=== PATIENT | female | born 2000 | race Caucasian/White ===

== ENCOUNTER 2024-07-26 01:27 | Emergency (ER) | payer OTHER, SELFPAY ==
[2024-07-26 01:29] VITALS: BP 124/88
[2024-07-26 01:47] VITALS: BP 112/72
--- NOTE | 2024-07-26 02:02 | ED.GENMED ---
History of Present Illness
General
Chief Complaint: Chest Pain
Source: patient and family
Exam Limitations: none
Time Seen by Provider: 07/26/24 02:01
Nursing documentation reviewed up to this point in time: agreed with
History of Present Illness
History of Present Illness:
Pleasant 24-year-old female presents to the emergency department with substernal chest pain that began around 10 PM this evening. Patient is a student at [employer] but lives up in [place]. On Wednesday she was seen at [facility] for an
abscess on her right upper arm. She was treated with Bactrim. She states that the abscess is now resolved and she has 2 days left of the Bactrim. She feels that this chest pain might have had something to do with the new medication. Denies
fever, chills, current chest pain, current shortness of breath. She states that the chest pain came on suddenly and has now resolved. Reports no fever. No complaints at this time.
Review of Systems
Review of Systems
Allergies reviewed?: Yes
All Other Systems: ROS reviewed and negative except as documented in HPI and ROS
Constitutional: Reports no symptoms
EENT: Reports no symptoms
Respiratory: Reports no symptoms
Cardiac: Reports chest pain
ABD/GI: Reports no symptoms
: Reports no symptoms
Musculoskeletal: Reports no symptoms
Skin: Reports no symptoms
Neurological: Reports no symptoms
Endocrine: Reports no symptoms
Hematologic/Lymphatic: Reports no symptoms
Psychiatric: Reports no symptoms
Phy Exam
General Physical Exam
General Presentation: well appearing and no apparent distress
General Skin: warm and dry
General Habitus: normal
General Mental: alert
General Hydration: appears well hydrated
ENT Exam
ENT Exam: EOMI, pharynx normal, neck supple and normocephalic
Eye Exam
Eye Exam: PERRL, cornea clear and conjunctiva normal
Cardiovascular Exam
Cardiovascular Exam: regular rate/rhythm, no edema, no murmur and normal peripheral pulses
Pulmonary Exam
Pulmonary Exam: lungs clear, no respiratory distress, no rales, no crackles, no rhonchi, no stridor, no wheezing and no cough
Gastrointestinal Exam
Gastrointestinal Exam: normal bowel sounds, non tender, soft, no organomegaly, no pulsatile mass and non distended
Neurological Exam
Neurological Exam: alert, oriented x3, no motor deficits and speech normal
Musculoskeletal Exam
Musculoskeletal Exam: full ROM and no edema
Skin Exam
Skin Exam: normal color, warm/dry, no rash and no petechia
Psychiatric Exam
Psychiatric Exam: normal mood/affect
Scores
Heart Score for Chest Pain Patients
STEMI patient?: No
History: Slightly or Non-Suspicious
ECG: Normal
Age: </= 45 years
Risk Factors: No Risk Factors
Troponin: </= Normal Limit
Heart Score for Chest Pain Patients: 0
Heart Score Risk: 2.5% MACE over next 6 weeks
Course
Orders/Labs/Results
Orders:
Orders
07/26/24 01:35
ECG [Electrocardiogram (*1)] Urgent
Reason for Study: Chest Pain
07/26/24 01:36
EKG- Treatment ONCE
07/26/24 02:02
Test Result ONCE
07/26/24 02:03
Complete Blood Count/With Diff Urgent
Comprehensive Metabolic Panel Urgent
HCG, Serum Qualitative Screen Urgent
Troponin I Urgent
07/26/24 02:11
D-Dimer Urgent
07/26/24 03:19
CR Chest - 2 Views Urgent
Comment:
Reason For Exam: cp
Abnormal Lab Results
07/26/24
02:03
Absolute Monos (auto) 0.9 H 10^3/uL
(0.1-0.6)
Monocytes % 15.7 H %
(1.7-9.3)
Total Protein 8.9 H g/dl
(6.3-8.2)
Albumin 5.1 H g/dl
(3.5-5.0)
07/26/24 02:03
07/26/24 02:03
Vital Signs
Initial and Last Documented VS:
Initial Vital Signs
Temp Pulse Resp BP Pulse Ox
98.3 F 66 18 124/88 100
07/26/24 01:29 07/26/24 01:29 07/26/24 01:29 07/26/24 01:29 07/26/24 01:29
Last Documented Vital Signs
Temp Pulse Resp BP Pulse Ox
98.3 F 49 12 112/83 99
07/26/24 01:29 07/26/24 02:30 07/26/24 02:30 07/26/24 03:55 07/26/24 03:55
*EKG
Interpreted by ED Provider?: Yes
EKG Intrepretation Date: 07/26/24
Interpretation: normal
Comparison EKG: no comparison EKG present
Heart Rate: 54
Rhythm: sinus
[place]: normal axis
Interval: short IA
QRS Pattern: normal QRS
Ischemia: no ischemia
*Level Vial Inspector Interpretation
Rate: normal
Interpretation: normal
Rhythm: sinus
*Critical Care Note
Total Time (30-74mins, 75-104mins- exclusive of procedures): Not Applicable
ED Attending Note
-
Portions of this chart may have been created with voice recognition software.� Occasional wrong word or��sound alike� substitutions may have occurred due to the inherent limitations of voice recognition software.
Discharge Plan
Departure
Patient Disposition: Home (Routine Discharge)
Date of Disposition: 07/26/24
Time of Disposition: 03:30
Patient with high blood pressure during this ER visit?: No
Condition: Good
Discharge Problem:
Medication adverse effect, Chest pain
Referrals:
[facility] [Outside]
UNKNOWN - PT DOES,NOT KNOW [Family Provider] -
Activity Restrictions/Additional Instructions:
It was a pleasure meeting you and taking part in your care. We hope for your continued healing and wellness.
Please read discharge instructions in their entirety. However, they are for general education and may not describe your exact diagnosis at discharge. Information on your ER visit and medical conditions were discussed with you along with appropriate
follow up information...
If indicated, please take your medications as instructed and indicated on discharge paperwork.
Please schedule a follow up appointment as directed. Call to schedule an appointment
Please return to the emergency department with ANY change in, persisting, or worsening of symptoms. If any of your symptoms do not improve, or persist, or become more severe within 6-12 hours, please return to the emergency department for further
care.
Please return to the emergency department if you develop a headache, neck pain/stiffness, fever greater than 100.4F, chest pain, shortness of breath, persistent nausea, vomiting, slurred speech, difficulty walking, numbness/tingling, weakness, signs
of infection or any other symptoms that are worrisome to you.
If you have any questions or concerns please do not hesitate to call the Hospital at or E-mail me directly at [email or web address]
Interventions
Interventions:
*Risk Screen - Suicide Last Done: 07/26/24 01:29
*General Assessment Last Done: 07/26/24 02:04
*Neglect/Abuse Screening Last Done: 07/26/24 01:29
ED- Fall Risk Assessment Last Done: 07/26/24 02:18
*ED COVID-19 Vaccine History Last Done: 07/26/24 02:04
*Nursing Disposition Last Done: 07/26/24 03:50
ED- Cardiac Assessment Last Done: 07/26/24 03:50
Discharge Date and Time
Discharge Date/Time: 07/26/24 03:50
Print Language: SPANISH
[2024-07-26 02:06] VITALS: BMI 26.3
[2024-07-26 02:13] LABS: % Basophils 0.7 % (0-2); % Eosinophils 1.6 % (0-6); % Immature Granulocytes 0.5 % (0-0.5); % Lymphocytes 27.7 % (20.5-51.1); % Monocytes 15.7 % (1.7-9.3); % Neutrophils 53.8 % (42.2-75.2); Absolute Eosinophils 0.1 10^3/uL (0-0.7); Absolute Lymphocytes 1.6 10^3/uL (1.2-3.4); Absolute Monocytes 0.9 10^3/uL (0.1-0.6); Hematocrit 37.2 % (37.0-47.0); Hemoglobin 12.4 g/dL (12.0-16.0); Mean Corp Hgb Conc. 33.3 g/dL (33.0-37.0); Mean Platelet Volume 8.8 fL (7.4-10.4); Nucleated Red Blood Cells % 0 %; Platelet Count 272 10^3/uL (130-400); Red Blood Cell Count 4.59 10^6/uL (4.20-5.40); Red Cell Dist. Width 13.4 % (11.5-14.5); White Blood Cell Count 5.6 10^3/uL (4.8-10.8)
[2024-07-26 02:30] LABS: HCG, Serum Qualitative Screen Negative
[2024-07-26 02:38] LABS: ALT (SGPT) 18 U/L (0-35); AST (SGOT) 25 U/L (14-36); Albumin 5.1 g/dl (3.5-5.0); Alkaline Phosphatase 48 U/L (38-126); Blood Urea Nitrogen 10 mg/dl (7-17); Calcium 9.5 mg/dl (8.4-10.2); Carbon Dioxide 23 mmol/L (22-30); Chloride 101 mmol/L (98-107); Estimated Creatinine Clearance 75 ml/min; Glucose 98 mg/dl (70-99); Potassium 5.1 mmol/L (3.5-5.1); Sodium 137 mmol/L (135-145); Total Bilirubin 0.5 mg/dl (0.2-1.3); Total Protein 8.9 g/dl (6.3-8.2); eGFR > 60.00
[2024-07-26 02:40] LABS: Troponin I < 0.012 ng/ml
[2024-07-26 03:00] LABS: D-Dimer < 0.27 ug/mlFEU (0.00-0.50)
[2024-07-26 03:55] VITALS: BP 112/83
== END 2024-07-26 03:50 | disposition home or self-care (01) ==
LOC: EMR 01:27
PROVIDERS: EMERGENCY PHYSICIAN Student in an Organized Health Care Education/Training Program
DX: R07.89 Other chest pain (principal); T36.8X5A Adverse effect of other systemic antibiotics, initial encounter
CPT/HCPCS: 99285; 71046; 80053; 84484; 84703; 85025; 85379; 93005